=== PATIENT | female | born 1980 | race Caucasian/White ===

== ENCOUNTER 2017-02-28 17:58 | Emergency (ER) | payer BC ==
[~2017-02-28] VITALS: Ht 160 cm; Wt 79.0 kg
[2017-02-28 18:11] VITALS: BP 128/92; PULSE 80; RESP 20; TEMP 97.5; O2SAT 100
[2017-02-28] MEDS ORDERED: LISI10TA3 PO (18:18)
[2017-02-28] MEDS ORDERED: HYDR25TA5 PO (18:18)
[2017-02-28] MEDS ORDERED: LIDOCAINE HCL 1% PF 30 ML VIAL ONE (18:23)
[2017-02-28] MEDS ORDERED: TETANUS/DIPHTHERIA TOXOID ADULT 0.5 ML VIAL IM ONE (18:30)
[2017-02-28] MEDS ORDERED: LIDOCAINE HCL 1% 50 ML VIAL INFIL ONE (18:30)
[2017-02-28] MEDS ORDERED: AMOX875T PO (18:42)
--- NOTE | 2017-02-28 18:42 | PD ---
HPI . Lip laceration Chief Complaint: Laceration/Skin Injury Time Seen by Provider: 18:18 Travel History International Travel<30 days: No Contact w/Intl Traveler<30days: No Traveled to known affect area: No History of Present Illness HPI This patient presents with a chief complaint of a lip laceration. She and her family were playing [employer] golf. Her hit a shot which ricocheted off something and then struck her in the lip. She does not know the date of her last tetanus shot. She is complaining with some associated left upper tooth pain. She reports constant pain which is rated 7/10 and which has no relieving or exacerbating factors. PFSH Past Medical History Hypertension: Yes Tetanus Vaccination: Unknown ?: Not Past Surgical History Surgical History: No Previous Surgery Hysterectomy: Yes Social History Alcohol Use: No Tobacco Use: No Substance Use: No Allergies-Medications (Allergen,Severity, Reaction): Coded Allergies: No Known Allergies (Unverified , 02/28/17) Reported Meds & Prescriptions Reported Meds & Active Scripts Active Reported Hydrochlorothiazide 25 Mg Tab 25 Mg PO DAILY Lisinopril 10 Mg Tab 10 Mg PO DAILY Review of Systems Except as stated in HPI: all other systems reviewed are Neg HENT: Positive: Dental Difficulties (pain in the left upper central incisor) Skin: Positive Other (upper lip laceration) Physical Exam Narrative GENERAL: Awake and alert and in no acute distress. SKIN: Warm and dry. She has a laceration of the left upper lip which involves only the mucous membrane. HEAD: Atraumatic. Normocephalic. EYES: Pupils equal and round. ENT: Her left upper central incisor is tender but is not loose or malpositioned. NECK: Trachea midline. CARDIOVASCULAR: Regular rate and rhythm. RESPIRATORY: No accessory muscle use. MUSCULOSKELETAL: No obvious deformities. No edema. NEUROLOGICAL: Awake and alert. No obvious cranial nerve deficits. Motor grossly within normal limits. Normal speech. PSYCHIATRIC: Appropriate mood and affect; insight and judgment normal. Data Data Last Documented VS Vital Signs Date Time Temp Pulse Resp B/P Pulse Ox O2 Delivery O2 Flow Rate FiO2 02/28/17 18:11 97.5 80 20 128/92 100 Orders Lidocaine 1% Inj (50 Ml) (Xylocaine 1% I (02/28/17 18:30) Tetanus/Diphtheria Tox Adult (Tetanus/Di (02/28/17 18:30) Lidocaine Pf 1% Inj (Xylocaine-Mpf 1% In (02/28/17 18:23) MDM Medical Decision Making Medical Screen Exam Complete: Yes Emergency Medical Condition: Yes Differential Diagnosis Differential diagnosis includes but is not limited to skin laceration, muscular laceration, tendon laceration, neurovascular laceration. Narrative Course Patient presents for treatment of an upper lip laceration. Tetanus will be updated. Procedures Procedure Narrative LACERATION LOCATION: Upper lip LENGTH: 1 cm NUMBER OF STITCHES/KATHY: 3 REPAIR: The area of the laceration was prepped with peroxide and sterilely draped. The laceration was infiltrated with 1% plain lidocaine. The wound was copiously cleaned with peroxide and explored without evidence of foreign body. The wound was closed using 3-0 Vicryl. This was a single layer repair. I used inverted buried sutures. Patient tolerated the procedure well. Diagnosis Primary Impression: Lip laceration Qualified Code: S01.511A - Lip laceration, initial encounter Patient Instructions: Facial Laceration (ED), General Instructions Additional Instructions: Clean twice daily and apply a thin layer of Vaseline or Neosporin. Follow-up if you develop any signs of infection such as pus, increasing pain, fever. Med/Other Pt SpecificInfo: Prescription(s) given Scripts Amoxicillin 875 Mg [id number] Mg PO BID 5 Days Ref 0 Prov:Kalie Galdamez MD 02/28/17 Disposition: 01 DISCHARGE HOME Condition: Stable Kalie Galdamez MD Feb 28, 2017 18:42
== END 2017-02-28 18:54 | disposition home or self-care (01) ==
LOC: PHEFT 17:58
DX: S01.511A Laceration without foreign body of lip, initial encounter (principal); W21.13XA Struck by golf club, initial encounter; Y93.53 Activity, golf; Y92.831 Amusement park as the place of occurrence of the external cause; Y99.9 Unspecified external cause status; Z23 Encounter for immunization
CPT/HCPCS: 12011; 90471; 90714